=== PATIENT | male | born 1940 | race Caucasian/White ===

== ENCOUNTER → 2019-07-23 | Outpatient (CLI) | payer OTHER ==
[~2019-07-23] MED LIST: ADULT LOW DOSE81 MG; ASA81BEC PO; ATENOLOL 100MG100 M2; BENICAR HCT 401 EACH; BYETTA PEN 11 PENINJ; CATAPRES-TTS 20.2 M1; LANTUS; LIPITOR10 MG PO; LIPITOR20 MG; METFORMIN; PANTOPRAZOLE SO40 M1 PO; PEPCID20 MG PO; TIMOLOL GL0.5 %/5 M1; TRICOR145 MG
[2019-07-23 16:27] LABS: HEMATOCRIT 26.4 % (42.0-52.0); HEMOGLOBIN 8.8 gm/dL (14.0-18.0); MCH 30.9 pg (26.0-34.0); MCHC 33.5 g/dL (28.0-37.0); MCV 92.2 fL (80.0-100.0); MPV 7.6 fl. (7.2-11.1); RBC 2.86 mil/uL (4.50-6.00); RDW-CV 16.2 % (10.5-14.5); WBC 9.7 thou/uL (4.0-11.0)
[2019-07-23 16:43] LABS: ALBUMIN 2.9 g/dL (3.4-5.0); CALCIUM 8.9 mg/dL (8.5-10.1); CREATININE 3.6 mg/dL (0.6-1.3); POTASSIUM 4.9 mmol/L (3.5-5.1); TOTAL BILIRUBIN 0.5 mg/dL (<0.1-1.0); TOTAL PROTEIN 7.1 g/dL (6.4-8.2)
--- NOTE | 2019-07-23 17:24 | 2DMMODE ---
[place] [address] 2 D/M-MODE ECHOCARDIOGRAM Name: LOU KIMBROUGH Room: [facility]#: [id number] Admission: 07/23/19 Attend Phys: Ollie Jerry, Discharge: Date of : 40 Date of Service: 07/23/19 1724 Report #: [id number] THIS REPORT FOR: //name// APPROVED REPORT Study performed: 07/23/2019 15:39:59 EXAM: Comprehensive 2D, Doppler, and color-flow Echocardiogram Patient Location: Out-Patient BSA: 2.06 HR: 91 bpm BP: 144/100 mmHg Rhythm: NSR Other Information Study Quality: Good Indications Dyspnea Hypertension/HDD 2D Dimensions IVSd: 16.65 (7-11mm) LVOT Diam: 22.45 (18-24mm) LVDd: 39.32 mm PWd: 13.12 (7-11mm) Ascending Ao: 34.95 (22-36mm) LVDs: 27.32 (25-40mm) Aortic Root: 34.69 mm Volumes Left Atrial Volume (Systole) LA ESV Index: 26.30 mL/m2 Aortic Valve AoV Peak Kishore.: 1.21 m/s AO Peak Gr.: 5.86 mmHg LVOT Max P.21 mmHg AO Mean Gr.: 3.52 mmHg LVOT Mean P.65 mmHg LVOT Max V: 1.14 m/s AO V2 VTI: 21.13 cm LVOT Mean V: 0.75 m/s NITESH (VTI): 3.47 cm2 LVOT V1 VTI: 18.52 cm Mitral Valve E/A Ratio: 0.50 MV Decel. Time: 360.52 ms MV E Max Kishore.: 0.57 m/[place] [address] 2 D/M-MODE ECHOCARDIOGRAM Name: LOU KIMBROUGH Room: [facility]#: [id number] Admission: 07/23/19 Attend Phys: Ollie Jerry, Discharge: Date of : 40 Date of Service: 07/23/19 1724 Report #: [id number] MV PHT: 104.55 ms MVA (PHT): 2.10 cm2 TDI E/Lateral E': 7.13 E/Medial E': 7.13 Medial E' Kishore.: 0.08 m/s Lateral E' Kishore.: 0.08 m/s Pulmonary Valve PV Peak Kishore.: 1.17 m/s PV Peak Gr.: 5.45 mmHg Tricuspid Valve RAP Estimate: 5.00 mmHg TR Peak Gr.: 31.70 mmHg RVSP: 36.00 mmHg PA Pressure: 36.00 mmHg Left Ventricle The left ventricle is normal size. There is normal LV segmental wall motion. Moderate concentric left ventricular hypertrophy. Left ventricular systolic function is normal. LVEF is 60-65%. Grade I - abnormal relaxation pattern. Right Ventricle The right ventricle is normal size. The right ventricular systolic function is normal. Atria The left atrium size is normal. The right atrium size is normal. Aortic Valve Mild aortic valve sclerosis. No aortic regurgitation is present. There is no aortic valvular stenosis. Mitral Valve There is mitral annular calcification. There is no mitral valve regurgitation noted. No evidence of mitral valve stenosis. Tricuspid Valve The tricuspid valve is normal in structure. Trace tricuspid regurgitation. Mild pulmonary hypertension. Pulmonic Valve The pulmonary valve is normal in structure. There is no pulmonic [place] [address] 2 D/M-MODE ECHOCARDIOGRAM Name: LOU KIMBROUGH Room: [facility]#: [id number] Admission: 07/23/19 Attend Phys: Ollie Jerry, Discharge: Date of : 40 Date of Service: 07/23/19 1724 Report #: [id number] Great Vessels The aortic root is normal in size. IVC is normal in size and collapses >50% with inspiration. Pericardium There is no pericardial effusion. <Conclusion> The left ventricle is normal size. Moderate concentric left ventricular hypertrophy. Left ventricular systolic function is normal. LVEF is 60-65%. Grade I - abnormal relaxation pattern. Mild aortic valve sclerosis. There is no aortic valvular stenosis. Trace tricuspid regurgitation. Mild pulmonary hypertension. IVC is normal in size and collapses >50% with inspiration. <ELECTRONICALLY SIGNED> By: Ollie Jerry MD, FACC 07/23/19 172 23 23 Ollie Jerry MD, FACC /INF
== END ==
LOC: M.CRD 15:32
PROVIDERS: Internal Medicine Cardiovascular Disease
DX: I08.0 Rheumatic disorders of both mitral and aortic valves (principal); I11.9 Hypertensive heart disease without heart failure; I27.20 Pulmonary hypertension, unspecified

== ENCOUNTER 2019-07-25 11:46 | Inpatient (IN) | payer OTHER ==
[~2019-07-25] VITALS: Ht 177.8 cm; Wt 99.2 kg
--- NOTE | ~2019-07-25 | PROC ---
[address] [address] PROCEDURE REPORT Name: LOU KIMBROUGH Room: [address] IN ..#: [id number] Admission: 07/25/19 Attend Phys: Tracie Camargo Discharge: 07/29/19 Date of : 40 Report #: [id number] THIS REPORT FOR: //name// For GI report, please see the Provation report in Perceptive 7 content. By: 0641Medical Records Staff SHANAE /SOLA
[~2019-07-25 11:46] MED LIST changes: -ASA81BEC PO; -LIPITOR10 MG PO; -PANTOPRAZOLE SO40 M1 PO; -PEPCID20 MG PO
[2019-07-25 11:48] VITALS: BP 149/87
[2019-07-25] MEDS ORDERED: LIPITOR10 MG PO (12:02)
[2019-07-25] MEDS ORDERED: ASA81BEC PO (12:03)
[2019-07-25 12:21] LABS: ABSOLUTE BASOPHILS 0.1 thou/uL (0.0-0.2); ABSOLUTE EOSINOPHILS 0.3 thou/uL (0.0-0.7); ABSOLUTE LYMPHOCYTES 0.9 thou/uL (0.8-5.3); ABSOLUTE MONOCYTES 0.6 thou/uL (0.0-1.2); ABSOLUTE NEUTROPHILS 6.4 thou/uL (1.6-8.1); BASOPHILS 1.3 %; EOSINOPHILS 3.4 %; HEMOGLOBIN 8.3 gm/dL (14.0-18.0); LYMPHOCYTES 10.6 %; MCH 31.5 pg (26.0-34.0); MCHC 34.6 g/dL (28.0-37.0); MCV 91.2 fL (80.0-100.0); MPV 7.3 fl. (7.2-11.1); NUCLEATED RBCS 0 /100WBC; PLATELET COUNT* 411 thou/uL (150-400); POLYS 77.7 %; RBC 2.63 mil/uL (4.50-6.00); RDW-CV 16.2 % (10.5-14.5); WBC 8.3 thou/uL (4.0-11.0)
[2019-07-25 12:30] LABS: CALCIUM 8.5 mg/dL (8.5-10.1); CREATININE 3.3 mg/dL (0.6-1.3); POTASSIUM 4.1 mmol/L (3.5-5.1)
[2019-07-25 12:31] LABS: APTT 24.7 Seconds (25.0-31.3); INR 1.1; PROTIME 11.2 Seconds (9.20-11.50)
[2019-07-25 12:41] LABS: ALBUMIN 2.8 g/dL (3.4-5.0); TOTAL BILIRUBIN 0.5 mg/dL (<0.1-1.0); TOTAL PROTEIN 6.5 g/dL (6.4-8.2)
--- NOTE | 2019-07-25 15:01 | NUR ---
BLOOD STARTED AT 1441, NO COMPLICATIONS AT THIS TIME, WILL CONTINUE TO MONITOR
[2019-07-25 16:51] VITALS: BP 162/81
--- NOTE | 2019-07-25 17:02 | EKG ---
[place] [address] ELECTROCARDIOGRAM REPORT Name: LOU KIMBROUGH Room: [place] [address] ADM IN [facility]#: [id number] Admission: 07/25/19 Attend Phys: Tracie Camargo Discharge: Date of : 40 Report #: [id number] THIS REPORT FOR: //name// [facility] ED Test Date: 2019-07-25 Test Time: 12:07:41 Pat Name: LOU KAYLAN Department: Room: 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 : 1940 Requested By: Cliff Guzman Order Number: [id number] MD: Ollie Jerry Measurements Intervals Moody Rate: 95 P: IL: QRS: -33 QRSD: 94 T: 87 QT: 359 QTc: 452 Interpretive Statements Sinus rhythm Premature atrial complexes Premature ventricular complex Left axis deviation Minimal ST depression, lateral leads Baseline wander in lead(s) V2 No previous ECG available for comparison Electronically Signed On 07-25-2019 17:01:44 DROSOPHERE OPERATOR by Ollie Jerry [email or web address] <ELECTRONICALLY SIGNED> By: Ollie Jerry MD, [facility] 07/25/19 1701 1207 1207 Ollie Jerry MD, [facility] /EPI
[2019-07-25 17:57] VITALS: BP 152/85
[2019-07-25 18:47] LABS: URINE BILIRUBIN NEGATIVE (Negative); URINE BLOOD NEGATIVE (Negative); URINE CLARITY CLEAR; URINE COLOR YELLOW; URINE GLUCOSE-RANDOM NEGATIVE (Negative); URINE KETONES NEGATIVE (Negative); URINE LEUKOCYTES-REFLEX NEGATIVE (Negative); URINE NITRITE-REFLEX NEGATIVE (Negative); URINE PROTEIN TRACE (Negative); URINE SPECIFIC GRAVITY 1.015 (1.005-1.030); URINE UROBILINOGEN 0.2 E.U./dl (0.2-1.0)
--- NOTE | 2019-07-25 18:52 | NUR ---
vss, assumed care of pt from er assessment performed and charted, part one & two on admit, pt is tracing afib on the monitor, a&o4, on ra and is up with one to bsc, pt denies any pain and will follow with planof care
[2019-07-25 20:00] VITALS: BP 149/73
[2019-07-26] VITALS: BP 138/73
[2019-07-26 04:00] VITALS: BP 132/70
[2019-07-26 05:04] LABS: ABSOLUTE BASOPHILS 0.1 thou/uL (0.0-0.2); ABSOLUTE EOSINOPHILS 0.3 thou/uL (0.0-0.7); ABSOLUTE LYMPHOCYTES 1.3 thou/uL (0.8-5.3); ABSOLUTE MONOCYTES 0.8 thou/uL (0.0-1.2); ABSOLUTE NEUTROPHILS 5.6 thou/uL (1.6-8.1); BASOPHILS 1.2 %; EOSINOPHILS 4.3 %; HEMATOCRIT 25.1 % (42.0-52.0); HEMOGLOBIN 8.4 gm/dL (14.0-18.0); LYMPHOCYTES 16.5 %; MCH 30.7 pg (26.0-34.0); MCHC 33.4 g/dL (28.0-37.0); MCV 92.1 fL (80.0-100.0); MONOCYTES 9.9 %; MPV 7.7 fl. (7.2-11.1); NUCLEATED RBCS 0 /100WBC; PLATELET COUNT* 359 thou/uL (150-400); POLYS 68.1 %; RBC 2.73 mil/uL (4.50-6.00); RDW-CV 16.2 % (10.5-14.5); WBC 8.2 thou/uL (4.0-11.0)
[2019-07-26 05:19] LABS: ALBUMIN 2.4 g/dL (3.4-5.0); CALCIUM 8.6 mg/dL (8.5-10.1); CREATININE 2.8 mg/dL (0.6-1.3); POTASSIUM 4.3 mmol/L (3.5-5.1); TOTAL BILIRUBIN 0.6 mg/dL (<0.1-1.0); TOTAL PROTEIN 5.9 g/dL (6.4-8.2)
--- NOTE | 2019-07-26 05:29 | NUR ---
PT HAS RESTED T/O NIGHT W/O COMPLAINT ON RA. SR ON MONITOR. NO C/O DIZZINESS. PT PROGRESSING TOWARDS GOALS.CALL LIGHT IN REACH
--- NOTE | 2019-07-26 06:40 | NUR ---
PT RE PORTS SIMETHICONE IS NOT EFFECTIVE IN TREATING GAS PAIN AND WOULD LIKE SOMETHING DIFFERENT
[2019-07-26 07:00] VITALS: BP 149/85
--- NOTE | 2019-07-26 09:00 | NUR ---
INITAL ASSESSMENT COMPLETED CHARTED. VSS. PT DENIES PAIN, SOA, N/V/D. FAMILY AT BEDSIDE. SEE COMPUTER CHARTING FOR FURTHER DETAILS. HOURLY ROUNDING IN PLACE FOR PT SAFETY. CLWR.
[2019-07-26 12:11] VITALS: BP 144/75
[2019-07-26 13:55] LABS: % SATURATION 14 % (20-39); IRON 43 ug/dL (50-175)
--- NOTE | 2019-07-26 15:41 | NUR ---
Pt is A&O. Resides at home alone. Independent and active. No DME. No hx of HH or SNF. Goal is home at vt. DPOA completed, copy on chart.
[2019-07-26 15:56] VITALS: BP 158/77
[2019-07-26 20:00] VITALS: BP 140/82
[2019-07-27] VITALS (8 sets, daily range): BP systolic 91–171; BP diastolic 62–85
--- NOTE | 2019-07-27 09:31 | NUR ---
INITAL ASSESSMENT COMPLETED CHARTED. VSS. TRACING SA WITH 1ST DEGREE BLOCK ON MONITOR. PT JEAN-PIERRE PAIN, SOA, N/V. STOOLS ARE CLEAR. NO NEW CONCERNS NOTED AT THIS TIME. HOURLY ROUNDING IN PLACE FOR PT SAFETY. CLWR. FANILY AT BEDSIDE.
--- NOTE | 2019-07-27 20:00 | NUR ---
RECEIVED REPORT AND ASSUMED CARE OF PT, ASSESSMENT COMPLETED. PT SLEEPING BUT AROUSES EASILY, PLEASANT. NO COMPLAINTS VOICED. TELEMETRY ON SHOWING SA.WILL CONT TO MONITOR AND ASSIST NEEDED.
--- NOTE | 2019-07-28 02:44 | NUR ---
RESTING QUIETLY WITHOUT COMPLAINTS. VOIDING WELL PER URINAL. NO CHANGE IN ASSESSMENT.
[2019-07-28 04:36] VITALS: BP 142/71
[2019-07-28 05:20] LABS: ABSOLUTE BASOPHILS 0.1 thou/uL (0.0-0.2); ABSOLUTE EOSINOPHILS 0.3 thou/uL (0.0-0.7); ABSOLUTE LYMPHOCYTES 1.2 thou/uL (0.8-5.3); ABSOLUTE MONOCYTES 0.8 thou/uL (0.0-1.2); ABSOLUTE NEUTROPHILS 5.8 thou/uL (1.6-8.1); BASOPHILS 0.8 %; EOSINOPHILS 4.1 %; HEMATOCRIT 24.2 % (42.0-52.0); HEMOGLOBIN 8.2 gm/dL (14.0-18.0); LYMPHOCYTES 14.4 %; MCH 31.1 pg (26.0-34.0); MCHC 33.7 g/dL (28.0-37.0); MCV 92.3 fL (80.0-100.0); MONOCYTES 9.9 %; MPV 7.8 fl. (7.2-11.1); NUCLEATED RBCS 0 /100WBC; PLATELET COUNT* 321 thou/uL (150-400); POLYS 70.8 %; RBC 2.62 mil/uL (4.50-6.00); RDW-CV 16.4 % (10.5-14.5); WBC 8.3 thou/uL (4.0-11.0)
[2019-07-28 05:55] LABS: ALBUMIN 2.2 g/dL (3.4-5.0); CREATININE 2.5 mg/dL (0.6-1.3); POTASSIUM 4.2 mmol/L (3.5-5.1); TOTAL BILIRUBIN 0.6 mg/dL (<0.1-1.0); TOTAL PROTEIN 5.5 g/dL (6.4-8.2)
[2019-07-28 07:00] VITALS: BP 145/83
--- NOTE | 2019-07-28 09:10 | NUR ---
INITAL ASSESSMENT COMPLETED CHARTED. VSS. TRACING SA ON MONITOR. PT DENIES PAIN. FAMILY AT BEDSIDE. HOURLY ROUNDING IN PLACE FOR PT SAFETY. CLWR.
[2019-07-28 12:02] VITALS: BP 133/76
[2019-07-28 16:09] VITALS: BP 144/92
[2019-07-28 20:00] VITALS: BP 121/59
[2019-07-29] VITALS: BP 139/66
--- NOTE | 2019-07-29 02:30 | NUR ---
PT ALERT ORIENTED. UP AD KELSI IN ROOM. TELEMETRY SHOWS SA. ON RA. DENIES PAIN. PT STATES I DON'T FEEL BAD AT ALL. WCTM.
[2019-07-29 04:00] VITALS: BP 122/68
[2019-07-29 04:33] LABS: HEMATOCRIT 23.7 % (42.0-52.0); HEMOGLOBIN 8.1 gm/dL (14.0-18.0); MCH 31.5 pg (26.0-34.0); MCV 92.9 fL (80.0-100.0); MPV 7.6 fl. (7.2-11.1); RBC 2.55 mil/uL (4.50-6.00); RDW-CV 16.1 % (10.5-14.5); WBC 7.2 thou/uL (4.0-11.0)
[2019-07-29 04:56] LABS: CALCIUM 8.6 mg/dL (8.5-10.1); MAGNESIUM 2.1 mg/dL (1.8-2.4); POTASSIUM 4.4 mmol/L (3.5-5.1)
[2019-07-29 07:02] VITALS: BP 150/79
--- NOTE | 2019-07-29 08:06 | NUR ---
INITAL ASSESSMENT COMPLETED CHARTED. VSS. TRACING SA, BISI WITH PVC'S. PT DENIES PAIN, CP, SOA, N/V/D. NO NEW CONCERNS AT THIS TIME. HOURLY ROUNDING IN PLACE FOR PT SAFETY. CLWR.
[2019-07-29] MEDS ORDERED: PEPCID20 MG PO (09:44)
[2019-07-29] MEDS ORDERED: PANTOPRAZOLE SO40 M1 PO (09:44)
[2019-07-29 10:31] VITALS: BP 150/79
--- NOTE | 2019-08-01 09:38 | PATH ---
[address] [address] PATHOLOGY RPT PROCEDURE Name: LOU KIMBROUGH Room: [address] IN .R.#: [id number] Admission: 07/25/19 Date of : 40 Discharge: 07/29/19 Report #: [id number] Path Case #: [id number] [facility] Accession Number: [id number] . 01 Material submitted: . PART A: duodenum - DUODENAL BIOPSY PART B: stomach - ANTRAL BIOPSY FOR H. PYLORI PART C: duodenum bulb - DUODENAL BULB ULCER BIOPSY PART D: colon - MID-TRANSVERSE COLON POLYP. Modifiers: mid, transverse PART E: colon - SIGMOID COLON POLYP. Modifiers: sigmoid . 01 Clinical history: . None provided . 02 Diagnosis: A. Duodenal biopsy: - Nonspecific severe active duodenitis with erosion, negative for granulomas, viral inclusions and dysplasia/adenomatous change. . B. Antral biopsy: - Moderate nonspecific chronic antral gastritis, negative for Helicobacter pylori organisms, granulomas and dysplasia. . C. Duodenal bulb ulcer biopsy: - Nonspecific severe active duodenitis with ulceration, negative for granulomas, viral inclusions and dysplasia/adenomatous change. . D. Mid transverse colon polyp: - Tubular adenoma, negative for high-grade dysplasia. . E. Sigmoid colon polyp: - Hyperplastic polyp. (MONET:crow; 07/31/2019) . . Special stain on B: H. pylori QMS 07/31/2019 1427 Local . 02 Electronically signed: . Nathen Jones MD, Pathologist NPI- [id number] . 01 Gross description: . A. The specimen is received in formalin, labeled "Lou Kimbrough, duodenal biopsy". Received are two segments of pale campos soft tissue ranging in size from 0.2 to 0.3 cm in maximum dimensions. The specimen is submitted entirely in cassette [place] [address] PATHOLOGY RPT PROCEDURE Name: LOU KIMBROUGH Room: [address]#: [id number] Admission: 07/25/19 Date of : 40 Discharge: 07/29/19 Report #: [id number] Path Case #: [id number] B. The specimen is received in formalin, labeled "Lou Kimbrough, antral biopsy for H. pylori". Received are two segments of pale campos soft tissue ranging in size from 0.3 to 0.5 cm in maximum dimensions. The specimen is submitted entirely in cassette B1. . C. The specimen is received in formalin, labeled "Lou Kimbrough, duodenal bulb ulcer biopsy". Received is a segment of pale campos soft tissue measuring 0.5 cm in maximum dimensions. The specimen is submitted entirely in cassette C1. . D. The specimen is received in formalin, labeled "Lou Kimbrough, mid transverse colon polyp". Received are two segments of pale campos soft tissue measuring 0.6 cm each in maximum dimensions. The specimen is submitted entirely in cassette D1. . E. The specimen is received in formalin, labeled "Lou Luke, sigmoid colon polyp". Received is a segment of pale campos soft tissue measuring 0.5 cm in maximum dimensions. The specimen is submitted entirely in cassette E1. (CAA; 07/30/2019) QAC/QAC 07/30/2019 1345 Local . 02 Pathologist provided ICD-10: K29.80, K26.9, K29.50, D12.3, K63.5 . 02 CPT . 376371, 960372, 304156, 928760, 256390, X21290 Specimen Comment: A courtesy copy of this report has been sent to [phone] Specimen Comment: 1181, , Specimen Comment: Report sent to , , Specimen Comment: and Specimen Comment: A duplicate report has been generated due to demographic updates. Performed at: 01 [facility] [address] [place] [address] [address], [place], [place] [id number] MD Filiberto Barriga MD Phone: [phone] Performed at: 02 [facility] [place] [address] [place], [place] [id number] MD Nathen Jones MD Phone: [phone]
--- NOTE | 2019-08-01 11:58 | CON ---
[address] [address] CONSULTATION Name: LOU KIMBROUGH Room: [address]#: [id number] Admission: 07/25/19 Attend Phys: Tracie Camargo Discharge: 07/29/19 Date of : 40 Report #: [id number] THIS REPORT FOR: //name// CC: [facility] DATE OF SERVICE: 07/29/2019 UROLOGICAL CONSULTATION REASON FOR CONSULTATION: Bilateral renal masses. HISTORY OF PRESENT ILLNESS: This is a 79-year-old male with a history of prostate cancer, status post radiation therapy 20 years ago under the care of Dr. Domenic Sandoval. He was admitted with blood loss anemia and found to have an upper GI bleed. Of note, his baseline creatinine is 3.0. The patient is already aware of his diagnosis and has already decided he does not want to consider surgical therapy. CT scan and sonogram revealed large bilateral renal masses up to 9 cm of the left of the left kidney with possible renal vein and vena caval invasion. I have reviewed the CT images, his laboratory evaluation, his clinical notes, interviewed the patient and conducted, the physical exam. PAST MEDICAL HISTORY/PAST SURGICAL HISTORY: As per history of present illness. He does have a history of radiation therapy for prostate cancer and Dr. Domenic Sandoval was his urologist. PHYSICAL EXAMINATION: GENERAL: He is awake and alert, oriented x 3. VITAL SIGNS: Stable. CHEST: Clear with no respiratory distress. ABDOMEN: Soft, nontender. No masses, organomegaly and cannot palpate the renal masses. Normal meatus penis, scrotum testes and epididymis. Rectal was normal without nodularity of the prostate, which is smooth, small and benign in consistency. LABORATORY DATA: Again, reviewed. The patient does have a creatinine of 3.0. 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 Both would require a nephrectomy for surgical treatment even a single nephrectomy would put him into a complete renal failure and need to be on dialysis. I have offered him a referral to [facility] to evaluate possible surgical therapy knowing he would have to be on dialysis and he is not at all interested[place] [address] CONSULTATION Name: LOU KIMBROUGH Room: [address]#: [id number] Admission: 07/25/19 Attend Phys: Tracie Camargo Discharge: 07/29/19 Date of : 40 Report #: [id number] his condition to some degree and might be interested in immunotherapy, so I do think that a consultation with medical oncology would be appropriate. I do not think either of these masses would be amenable to ureteroscopic biopsy, so tissue biopsy is needed, would recommend this be done through Interventional Radiology. I would recommend the patient follow up with Dr. Sandoval in office. He does understand the risk of bleeding and clot retention and he has refused any aggressive surgical intervention, which I think is appropriate. <ELECTRONICALLY SIGNED> By: Reji Lacey MD 08/01/19 1158 0922 [id number] Lacey MD /nt
--- NOTE | 2019-08-02 09:57 | CON ---
[address] [address] CONSULTATION Name: LOU KIMBROUGH Room: [address] IN .R.#: [id number] Admission: 07/25/19 Attend Phys: Tracie Camargo Discharge: 07/29/19 Date of : 40 Report #: [id number] THIS REPORT FOR: //name// CC: Dominick Elder DICTATED BY: Mary Rodriguez [facility] DATE OF SERVICE: 07/26/2019 Please note at the time of this dictation, the patient was seen and physically examined by myself. REASON FOR CONSULTATION: Acute anemia. HISTORY OF PRESENT ILLNESS: This pleasant 79-year-old male presented to the Emergency Room with increasing fatigue and shortness of breath. The patient states that he has been having gradual worsening of his symptoms over the last 3 months. He was evaluated by his PCP and was noted to have some orthostatic hypotension at that time. He denies any nausea or vomiting or any abdominal pain. He does continually report that he has gradually lost weight, but over the last month, his weight has increased because he has had a loss of appetite. He has been drinking Boost in the morning because of this loss of appetite. He denies any NSAID use at this time. He states after eating he will have severe gas and bloating. He will do some simethicone and that helps with his symptoms. He had a colonoscopy. First he said it was the last one in his 50s and then secondly he said that when he switched PCPs from Dr. Collins to Dr. Hightower that his last colon was normal and that he did not need anymore, but he does not recall where that was done at. The patient states his bowels move every day, soft and formed. They have been decreased in the amount since he has not had much of an appetite over the past month, but have not changed in caliber and he has not noticed any bright red blood or any melena. He denies any upper GI symptoms at this time. ALLERGIES: No known drug allergies. MEDICATIONS: From home include atorvastatin, simethicone, Catapres, Benicar, atenolol, TriCor, Lantus and metformin. PAST MEDICAL HISTORY: Diabetes, heart disease and hypertension. The patient also had prostate cancer and post-radiation treatment. PAST SURGICAL HISTORY: Cataracts [place] [address] CONSULTATION Name: LOU KIMBROUGH Room: [address]#: [id number] Admission: 07/25/19 Attend Phys: Tracie Camargo Discharge: 07/29/19 Date of : 40 Report #: [id number] FAMILY HISTORY: Negative for any GI or female cancers. SOCIAL HISTORY: Denies any alcohol, tobacco or illegal drug use. REVIEW OF SYSTEMS: Twelve-point review of systems is essentially negative except what is mentioned in the HPI. PHYSICAL EXAMINATION: VITAL SIGNS: Temperature 36.4, pulse 78, respirations 18, blood pressure 149/85. HEART: Regular rate and rhythm. LUNGS: Clear. ABDOMEN: Soft, positive bowel sounds in all 4 quadrants with no masses or tenderness noted. LABORATORY DATA: Hemoglobin on admission is 8.8, he is down to 8.4. It is noted several months ago Dr. Jerry had made a note that his hemoglobin was in the 11, white count is 8.2, platelets 359. BUN is 55, creatinine is 2.8, GFR is 22. Total protein is 5.9, albumin is 2.4. The patient had a chest x-ray, showed some right mild chronic-appearing lung changes, otherwise normal. IMPRESSION: 1. Acute anemia. 2. Fatigue. 3. Chronic kidney disease stage 3. 4. History of prostate cancer, status post radiation 12 years ago. PLAN: 1. EGD and colonoscopy tomorrow. 2. Prep with clear liquids today. 3. Further recommendations to be made once the procedure has been performed. Thank you for allowing us to participate in this patient's care. Please do not hesitate to call with any questions in regard to this consult. <ELECTRONICALLY SIGNED> By: Adali Long MD 08/02/19 0957 1238 2220Adali Long MD /nt
== END 2019-07-29 11:33 | disposition home or self-care (01) | DRG 378 ==
LOC: M.ERS 11:46 → M.2W 13:08 → M.TBA-ER 13:08 → M.2W 18:10
PROVIDERS: Emergency Medicine Emergency Medical Services; Internal Medicine; Internal Medicine Gastroenterology; Nurse Practitioner Adult Health; ADMIT Internal Medicine
DX: K26.4 Chronic or unspecified duodenal ulcer with hemorrhage (principal); E44.0 Moderate protein-calorie malnutrition; I13.0 Hypertensive heart and chronic kidney disease with heart failure and stage 1 through stage 4 chronic kidney disease, or unspecified chronic kidney disease; I50.32 Chronic diastolic (congestive) heart failure; D62 Acute posthemorrhagic anemia; N18.4 Chronic kidney disease, stage 4 (severe); K29.00 Acute gastritis without bleeding; D12.5 Benign neoplasm of sigmoid colon; D12.3 Benign neoplasm of transverse colon; E78.5 Hyperlipidemia, unspecified; E11.22 Type 2 diabetes mellitus with diabetic chronic kidney disease; K57.30 Diverticulosis of large intestine without perforation or abscess without bleeding; K64.4 Residual hemorrhoidal skin tags; K29.80 Duodenitis without bleeding; N28.89 Other specified disorders of kidney and ureter; R91.8 Other nonspecific abnormal finding of lung field; I95.1 Orthostatic hypotension; I35.0 Nonrheumatic aortic (valve) stenosis; Z92.3 Personal history of irradiation; Z68.31 Body mass index [BMI] 31.0-31.9, adult; Z79.82 Long term (current) use of aspirin; Z79.899 Other long term (current) drug therapy; Z98.49 Cataract extraction status, unspecified eye; Z85.46 Personal history of malignant neoplasm of prostate; Z90.49 Acquired absence of other specified parts of digestive tract

== ENCOUNTER → 2019-08-20 | Outpatient (CLI) | payer OTHER ==
[~2019-08-20] MED LIST changes: +ASA81BEC PO; +LIPITOR10 MG PO; +PANTOPRAZOLE SO40 M1 PO; +PEPCID20 MG PO
--- NOTE | 2019-08-20 12:32 | 2DMMODE ---
[place] [address] 2 D/M-MODE ECHOCARDIOGRAM Name: LOU KIMBROUGH Room: [facility]#: [id number] Admission: 08/20/19 Attend Phys: Ollie Jerry, Discharge: Date of : 40 Date of Service: 08/20/19 1231 Report #: [id number] THIS REPORT FOR: //name// APPROVED REPORT Study performed: 08/20/2019 10:55:19 EXAM: Comprehensive 2D, Doppler, and color-flow Echocardiogram Patient Location: Out-Patient BSA: 2.13 HR: 85 bpm BP: 150/85 mmHg Other Information Study Quality: Good Indications Dyspnea Hypertension/HDD 2D Dimensions IVSd: 13.41 (7-11mm) LVOT Diam: 20.36 (18-24mm) LVDd: 53.92 mm PWd: 14.65 (7-11mm) Ascending Ao: 34.36 (22-36mm) LVDs: 40.22 (25-40mm) Aortic Root: 31.70 mm Volumes Left Atrial Volume (Systole) LA ESV Index: 28.20 mL/m2 Aortic Valve AoV Peak Kishore.: 1.34 m/s AO Peak Gr.: 7.16 mmHg LVOT Max P.36 mmHg AO Mean Gr.: 4.29 mmHg LVOT Mean P.03 mmHg LVOT Max V: 1.26 m/s AO V2 VTI: 28.18 cm LVOT Mean V: 0.80 m/s NITESH (VTI): 3.32 cm2 LVOT V1 VTI: 28.74 cm Mitral Valve MV Peak Gr.: 8.75 mmHg MV Mean Gr.: 3.53 mmHg E/A Ratio: 0.67 MV Decel. Time: 418.53 ms MV E Max Kishore.: 0.90 m/[place] [address] 2 D/M-MODE ECHOCARDIOGRAM Name: LOU KIMBROUGH Room: [facility]#: [id number] Admission: 08/20/19 Attend Phys: Ollie Jerry, Discharge: Date of : 40 Date of Service: 08/20/19 1231 Report #: [id number] MV PHT: 121.37 ms MVA (PHT): 1.81 cm2 TDI E/Lateral E': 11.25 E/Medial E': 12.86 Medial E' Kishore.: 0.07 m/s Lateral E' Kishore.: 0.08 m/s Pulmonary Valve PV Peak Kishore.: 1.07 m/s PV Peak Gr.: 4.55 mmHg Tricuspid Valve RAP Estimate: 5.00 mmHg TR Peak Gr.: 16.66 mmHg RVSP: 21.66 mmHg PA Pressure: 21.66 mmHg Left Ventricle The left ventricle is normal size. There is normal LV segmental wall motion. Moderate concentric left ventricular hypertrophy. The left ventricular systolic function is normal. LVEF is 60-65%. Grade I - abnormal relaxation pattern. Right Ventricle The right ventricle is normal size. The right ventricular systolic function is normal. Atria The left atrium size is normal. The right atrium size is normal. Aortic Valve Mild aortic valve sclerosis. Trace to mild aortic regurgitation. There is no aortic valvular stenosis. Mitral Valve There is mitral annular calcification. There is no mitral valve regurgitation noted. Mild mitral stenosis. Tricuspid Valve The tricuspid valve is normal in structure. Mild tricuspid regurgitation. No pulmonary hypertension. Pulmonic Valve The pulmonary valve is normal in structure. There is no pulmonic [place] [address] 2 D/M-MODE ECHOCARDIOGRAM Name: LOU KIMBROUGH Room: [facility]#: [id number] Admission: 08/20/19 Attend Phys: Ollie Jerry, Discharge: Date of : 40 Date of Service: 08/20/19 1231 Report #: [id number] Great Vessels The aortic root is normal in size. IVC is normal in size and collapses >50% with inspiration. Pericardium There is no pericardial effusion. <Conclusion> The left ventricle is normal size. Moderate concentric left ventricular hypertrophy. The left ventricular systolic function is normal. LVEF is 60-65%. Grade I - abnormal relaxation pattern. Mild aortic valve sclerosis. Trace to mild aortic regurgitation. There is no aortic valvular stenosis. There is mitral annular calcification. Mild mitral stenosis. Mild tricuspid regurgitation. No pulmonary hypertension. IVC is normal in size and collapses >50% with inspiration. <ELECTRONICALLY SIGNED> By: Ollie Jerry MD, FACC 08/20/19 1231 1231 1231 Ollie Jerry MD, FACC /INF
== END ==
LOC: M.CRD 10:36
DX: I08.3 Combined rheumatic disorders of mitral, aortic and tricuspid valves (principal); I11.9 Hypertensive heart disease without heart failure